=== PATIENT | male | born 1965 | race Caucasian/White ===

== ENCOUNTER 2018-01-13 08:44 | Emergency (ER) | payer SELFPAY ==
[2018-01-13 08:52] VITALS: BP 131/90; BMI 24.4
--- NOTE | 2018-01-13 09:21 | DR.TOOTHHP ---
HPI - Time Seen Time seen: 09:10 - Primary Care Physician Primary Care Physician: alessia - HPI Comment HPI Comment: PATIENT WITH MULTIPLE DENTAL CARRIES AND CHRONIC DENTAL PAIN HERE DUE TO INCREASE PAIN, FEVER , HEADACHE AND HOME MEDICATIONS NOT HELPING HIS CONDITION. ASPIRIN AND MOTRIN IS NOT HELPING PAIN. TOOTHACHE INTERFERING WITH EATING. - Complaints Chief Complaint Doctors Comments: TOOTH ACHE TIMES FEW DAYS. WORSE TODAY. Chief Complaint:: Pt c/o multiple broken teeth. He states he has on tooth on top and one on bottom that have both abcessed and are causing pain. - Reviewed Nurses Notes Reviewed: Yes - Source History Provided: Patient - Mode of Arrival Mode of Arrival: Ambulatory - Timing Onset of Chief Complaint: 01/13/18 - Severity Pain Severity: Moderate - Location Location:: Right, Left, Upper, Lower, Teeth - Modifying Factors Worsens:: Heat, Cold, Chewing Improves:: Analagesics havn't helped - Associated Signs and Symptoms Associated signs and symptoms: Fever (AT HOME.) PMH - PMH Past Medical History: Yes Past Medical History: Anemia, Arthritis, COPD Past Medical History Comment: Vit D deficiency Past Surgical History: Yes Past Surgical History Comment: carpal tunnel x 2 - Family History History of Family Medical Conditions: Yes Family Medical History: Diabetes Mellitus - Social History Does patient currently use any type of tobacco product: Yes Have you used tobacco products in the last 12 months: Yes Type of Tobacco Use: Cigarettes Does any household member use tobacco: No Alcohol Use: Rarely Do you use any recreational Drugs:: Yes (marijuana) Lives With: Family Lives Where: Home - infectious screening In the last 2 months have you had wt loss of >10#?: NO Have you had fever, night sweats or hemotysis?: No Have you traveled outside the country in the last 6 months?: No Isolation: Standard ROS - Review of Systems Constitutional: No Symptoms Reported Eyes: No Symptoms Reported ENTM: Mouth Pain (MULTIPLE DENTAL CARRIES. GUM SWOLLEN OVER UPPER AND LOWER CANINE ON RIGHT SIDE AND ALL THE MOLARS. SOME OF THE MOLARS ARE PREVIOUSLY EXTRACTED.) Respiratoy: No Symptoms Reported Cardiovascular: No Symptoms Reported Gastrointestinal/Abdominal: No Symptoms Reported Genitourinary: No Symptoms Reported Neurological: No Symptoms Reported Musculoskeletal: No Symptoms Reported Integumentary: No Symptoms Reported Hematologic/Lymphatic: No Symptoms Reported Endocrine: No Symptoms Reported All Other Systems: Reviewed and Negative PE - Vital Signs Vitals: Temperature 97.2 F Pulse Rate 82 Respiratory Rate 20 Blood Pressure 131/90 O2 Sat by Pulse Oximetry 100 - General Limitations: No Limitations General Appearance: Alert - Head Head Exam: Normal Inspection - Eyes Eye exam: Normal Appearance - ENT ENT Exam: Normal External Ear Exam TM/Canal Exam: Bilateral Normal Nose Exam: Normal Nose Exam Mouth Exam: negative: Trismus Teeth Exam: Dental Caries, Dental Tenderness #, Gingival Swelling Throat Exam: Normal Inspection - Neck Neck Exam: Normal Inspection - Chest Chest Inspection: Normal Inspection - Respiratory Respiratory Exam: Normal Lung Sounds Bilat, Chest Wall Tenderness Respiratory Exam: Bilateral Clear to Auscultation - Cardiovascular Cardiovascular Exam: Regular Rate, Normal Rhythm, Normal Heart Sounds - Abdominal Exam Abdominal Exam: Normal Inspection - Extremities Extremities Exam: Normal Inspection - Back Back Exam: Normal Inspection - Neurologic Neurological Exam: Alert, Oriented X3 - Psychiatric Psychiatric Exam: Normal Affect, Normal Mood - Skin Skin Exam: Normal Color MDM - Differential diagnosis Differential Diagnosis: Other (GINGIVITIS, DENTAL ABSCESS.) Course - Treatment Treatment: SEE ORDERS. - Education/Counseling Education/Counseling: Patient, Education Educated On: Diagnosis, Needs for Follow Up - Diagnosis Discharge Problem: Toothache, Dental abscess, Gingivitis - Discharge Plan Condition: Stable Prescriptions: Acetaminophen/Codeine Tab [TYLENOL w/CODEINE #3 (300 MG/30 MG) *] 1 tab PO Q6H PRN #15 tab PRN Reason: Pain Amoxicillin [Amoxil 875 mg] 875 mg PO Q12H #20 tab Ibuprofen [MOTRIN TAB 800 MG *] 800 mg PO Q8H PRN #30 tab PRN Reason: Pain/Inflammation - Follow ups/Referrals Follow ups/Referrals: [facility],None [Primary Care Provider] - 3 days - Instructions Instructions: Gingivitis, [id number], Dental Abscess, [id number] Additional Instructions: RETURN TO ED IF WORSE. FOLLOW UP WITH DENTIST OF YOUR CHOICE THIS WEEK.
== END 2018-01-13 09:35 | disposition home or self-care (01) ==
LOC: ER 08:54
DX: K02.9 Dental caries, unspecified (principal); K05.10 Chronic gingivitis, plaque induced; K08.89 Other specified disorders of teeth and supporting structures
CPT/HCPCS: 99281; 99282